=== PATIENT | female | born 1990 | race African-American/Black ===

== ENCOUNTER 2018-07-02 07:06 | Emergency (ER) | payer OTHER ==
[2018-07-02 07:14] VITALS: BP 123/75; PULSE 84; TEMP 98.8; BMI 42.5
--- NOTE | 2018-07-02 07:35 | PDOC ---
History of Present Illness - General Chief Complaint: Respiratory Stated Complaint: ASTHMA Time Seen by Provider: 07/02/18 07:35 - History of Present Illness Initial Comments: 27yo F with history of asthma presenting with asthma exacerbation. Patient reports that her episode started around 5:30 am, triggered by the weather changing. She says that this asthma attack is similar to those she has had previously. Last asthma attack was in December. She has not had an inhaler since April because her prescription ran out. Patient has never been hospitalized or intubated for her asthma. She does not recall whether she has ever received steroids for an exacerbation. Endorses cough that started this morning as well. Patient had an appointment to see a provider in a clinic today but felt like she needed treatment more emergently. She has not gotten a flu shot this season. Denies fever, chills, chest pain, or abdominal pain. Past History - Past Medical History Allergies/Adverse Reactions: Allergies Allergy/AdvReac Type Severity Reaction Status Date / Time No Known Allergies Allergy Verified 07/02/18 07:11 Home Medications: Ambulatory Orders Albuterol Sulfate Inhaler - [Ventolin Hfa Inhaler -] 1 - 2 inh PO Q4H PRN #1 inhaler 07/02/18 Asthma: Yes COPD: No CHF: No - Suicide/Smoking/Psychosocial Hx Smoking History: Never smoked Hx Alcohol Use: No Drug/Substance Use Hx: No Review of Systems - Review of Systems Comments:: Constitutional: no fever, no chills HEENT: no throat pain, no dysphagia Cardiovascular: no chest pain, no palpitations Respiratory: +cough, +shortness of breath Gastrointestinal: no abdominal pain, no nausea, no vomiting Genitourinary: no dysuria, no frequency Musculoskeletal: no myalgia, no arthralgia Skin: no rash, no itching Neurologic: no headache, no dizziness *Physical Exam - Vital Signs Last Vital Signs Temp Pulse Resp BP Pulse Ox 98.8 F 84 20 123/75 99 07/02/18 07:11 07/02/18 07:11 07/02/18 07:11 07/02/18 07:11 07/02/18 07:11 - Physical Exam Comments: General: Awake, alert, and fully oriented, well-appearing, in no acute distress Head: no signs of trauma Eyes: EOMI, sclera anicteric ENT: Moist mucus membranes Neck: Normal ROM, supple Lungs: Diffuse wheezes bilaterally Cardio: Regular rhythm, S1 and S2 present Abdomen: Soft, nontender. Extremities: Normal range of motion, Distal pulses present SKIN: Warm, Dry, normal turgor Neurologic: Cranial nerves II through XII grossly intact. Normal speech Medical Decision Making - Medical Decision Making 27yo F with history of asthma presenting with asthma exacerbation. -DDX includes but not limited to asthma exacerbation, COPD, pneumonia, URI, PNA , Allergic reaction -Duonebs 3 amp -Will reassess 07/02/18 07:59 Patient reports alleviation of symptoms. Lung exam much improved. Prescribed ventolin pump; referred to [facility] Discharged. Patient amenable with plan. 07/02/18 08:58 *DC/Admit/Observation/Transfer Diagnosis at time of Disposition: Asthma exacerbation - Discharge Dispostion Disposition: HOME Condition at time of disposition: Improved - Prescriptions Prescriptions: Albuterol Sulfate Inhaler - [Ventolin Hfa Inhaler -] 1 - 2 inh PO Q4H PRN #1 inhaler PRN Reason: Short Of Breath/Wheezing - Referrals Referrals: [facility] [place] [Provider Group] - Patient Instructions Printed Discharge Instructions: DI for Asthma -- Adult Additional Instructions: You were seen in the emergency department for an asthma exacerbation. You received breathing treatments which improved your symptoms. Follow-up with a primary care doctor this week to discuss this ED visit and to further evaluate your asthma. You have been referred to the [facility]. Call and make an appointment at the number provided. Prescription sent to your pharmacy Call for emergency medical services or go to the emergency room right away if any of the following occurs: Difficulty breathing, unrelieved by medications Tightness in chest, unrelieved by medications If you think you have an emergency, call for medical help right away. - Post Discharge Activity Forms/Work/School Notes: Back to Work
[2018-07-02] MEDS ORDERED: ALBUTEROL SO4 2.5/IPRATROPIUM 0.5 INH SOL 3 ML VIAL.NEB. NEB ONE ×2 (07:57→08:07)
--- NOTE | 2018-07-02 08:22 | PDOC ---
Attending Attestation - Resident Resident Name: Lillie Delacruz - ED Attending Attestation I have performed the following: I have examined & evaluated the patient, The case was reviewed & discussed with the resident, I agree w/resident's findings & plan, Exceptions are as noted - HPI HPI: 27 years old past medical history significant for mild asthma presents to the emergency department with mild asthma exacerbation status post running out of her home pump. No history of intubations or hospitalizations no recent steroid use triggers seem to be viral illnesses and change of seasons. Mild wheezing persistent concent no exacerbating or alleviating factors. No significant respiratory distress. No fever no chills no productive sputum no chest pain. - Physicial Exam PE: 07/02/18 08:26 Vitals: Triage Vital signs reviewed General Appearance: no acute distress, well nourished well developed, Head: Atraumatic, Neck: Supple;No Nucal rigidity Chest Wall: Nontender Cardiac: Regular rate and rhythym, no murmurs, no rubs, no gallops, Lungs: End expiratory wheezing b/l Abdomen: Soft, non distended, normal bowel sounds, non tender to palpation Extremities: Full range of motion to all extremities, no cyanosis, clubbing, or edema Skin: Warm and dry, no rashes or lesions, no rash, no petechiae Psych: normal mood, normal affect - Medical Decision Making 07/02/18 12:56 Mild asthma exacerbation status post to duo nebs patient feels much better no longer wheezing no indication for steroids at this time was given a prescription for Ventolin inhaler Findings, the need for follow-up and strict return instructions discussed with patient.
== END 2018-07-02 08:52 | disposition home or self-care (01) ==
LOC: JER 07:06
PROC: 3E0F7GC Introduction of Other Therapeutic Substance into Respiratory Tract, Via Natural or Artificial Opening (ICD-10-PCS; principal; 2018-07-02)
DX: J45.901 Unspecified asthma with (acute) exacerbation (principal)
CPT/HCPCS: 99283-25

== ENCOUNTER 2019-10-27 20:30 | Emergency (ER) | payer OTHER ==
[2019-10-27 20:49] VITALS: BP 127/83; TEMP 98.7; BMI 44.6
[2019-10-27 22:00] LABS: ARTERIAL BLD GAS O2 SATURATION 96.5 % (95-98); ARTERIAL BLOOD GAS PCO2 36.5 mmHg (35-45); ARTERIAL BLOOD GAS PO2 82.6 mmHg (80-100); ARTERIAL BLOOD GAS pH 7.41 (7.35-7.45); CARBOXYHEMOGLOBIN 1.9 % (0-2)
[2019-10-27 22:11] VITALS: PULSE 98
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
== END 2019-10-27 23:12 | disposition home or self-care (01) ==
LOC: JERFT 20:30
DX: T59.811A Toxic effect of smoke, accidental (unintentional), initial encounter (principal); J70.5 Respiratory conditions due to smoke inhalation; J45.909 Unspecified asthma, uncomplicated; Y92.038 Other place in apartment as the place of occurrence of the external cause
CPT/HCPCS: 36600; 82375; 82803; 83050; 99283-25